=== PATIENT | male | born 1975 | race Caucasian/White ===

== ENCOUNTER 2024-05-22 18:07 | Observation (INO) | payer OTHER, SELFPAY ==
[2024-05-22 18:31] VITALS: BP 116/58; PULSE 78; TEMP 36.9; O2SAT 99; BMI 25.1
--- NOTE | 2024-05-22 18:38 | CT_ITS ---
[address] [address] Patient Name: ALEXANDRU THOMAS MRN: [id number] date: 1975 Sex: M Assigned Patient Location: ER Current Patient Location: ER Accession/Order Number: [id number] Exam Date: 05/22/2024 19:17 Report Date: 05/22/2024 21:01 At the request of: NASIM SAMUELS Procedure: CT lumbar spine wo con EXAM: CT lumbar spine wo con, CT thoracic spine wo con HISTORY: Fall off a ladder COMPARISON: None. TECHNIQUE: Axial CT scans of the lumbar spine and thoracic spine were obtained without contrast. MPR images were obtained. Dose reduction techniques were achieved by using: automated exposure control and/or adjustment of mA and /or kV according to patient size and/or use of iterative reconstruction technique. FINDINGS: LUMBAR SPINE: An acute moderate compression fracture of L1 superior endplate with resultant about 50% decrease in vertebral height anteriorly. Minimal retropulsion of the superior aspect of L1 middle column. Mild prevertebral edema is present. Mild posterior disc bulge at L4-5. No central spinal stenosis or neural foraminal stenosis. SI joints are intact. The visualized retroperitoneum shows no hemorrhage or adenopathy. Subcutaneous soft tissue contusion at the visualized medial aspect of the left gluteus roxanna muscle. THORACIC SPINE: No acute fracture or posttraumatic malalignment. Mild upper thoracic levoscoliosis without segmental anomaly, measuring about 20 degrees. No central spinal stenosis or abnormal paraspinal soft tissue. The prevertebral space shows no edema. The visualized lungs show no acute process. CT/CT lumbar spine wo con IMPRESSION: The thoracic spine shows no acute fracture or posttraumatic malalignment. An acute moderate compression fracture of L1 superior endplate with resultant about 50% decrease in vertebral height anteriorly. Minimal retropulsion of the superior aspect of L1 middle column. Mild prevertebral edema is present. Mild upper thoracic levoscoliosis without segmental anomaly, measuring about 20 degrees. Electronically authenticated by: COURTNEY SPANGLER Date: 05/22/2024 21:01
--- NOTE | 2024-05-22 18:38 | CT_ITS ---
The [address] [address] Patient Name: ALEXANDRU THOMAS MRN: [id number] date: 1975 Sex: M Assigned Patient Location: ER Current Patient Location: Accession/Order Number: [id number] Exam Date: 05/22/2024 19:17 Report Date: 05/22/2024 20:47 At the request of: NASIM SAMUELS Procedure: CT head/brain wo con EXAM: CT head/brain wo con, CT cervical spine wo con HISTORY: Fall off ladder COMPARISON: None. TECHNIQUE: Axial CT scans through the head and cervical spine were obtained without IV contrast administration. Dose reduction techniques were achieved by using: automated exposure control and/or adjustment of mA and /or kV according to patient size and/or use of iterative reconstruction technique. FINDINGS: CT BRAIN There is no evidence of acute intracranial hemorrhage or abnormal extra-axial fluid collection. No mass effect or midline shift is seen. There is no evidence of large acute territorial infarction. There is no hydrocephalus. No definite acute fracture is identified. Soft tissues are unremarkable. The visualized orbits show no abnormality. There is complete opacification of partially visualized left maxillary sinus. Mastoid air cells are clear. CT CERVICAL SPINE No acute fracture or posttraumatic malalignment is seen. The dens and lateral masses of C1 are symmetric. There is reversal of the normal cervical lordotic curvature, centered at C6-7 and mild dextroscoliosis, may be related to positioning or muscle spasm. There are multilevel mild to moderate degenerative changes of cervical spine. Findings are most pronounced at C6-7 level. There is mild disc space narrowing at C4-5, C6-7 levels and marginal osteophytes. There are multilevel mild disc-osteophyte complexes. No significant spinal canal narrowing. There are multilevel neural foraminal narrowing, moderate at right C4-5, left C6-7, and mild at right C5-6, secondary to uncovertebral joint and facet hypertrophy. The prevertebral soft tissue space appears normal. There are mild biapical scarring. CT/CT head/brain wo con IMPRESSION: No CT evidence of acute intracranial abnormality. No visualized acute cervical spine abnormality. Chronic findings, as described. Electronically authenticated by: SIMON PRECIADOU Date: 05/22/2024 20:47
--- NOTE | 2024-05-22 18:38 | CT_ITS ---
The [address] [address] Patient Name: ALEXANDRU THOMAS MRN: [id number] date: 1975 Sex: M Assigned Patient Location: ER Current Patient Location: Accession/Order Number: [id number] Exam Date: 05/22/2024 19:17 Report Date: 05/22/2024 20:47 At the request of: NASIM SAMUELS Procedure: CT cervical spine wo con EXAM: CT head/brain wo con, CT cervical spine wo con HISTORY: Fall off ladder COMPARISON: None. TECHNIQUE: Axial CT scans through the head and cervical spine were obtained without IV contrast administration. Dose reduction techniques were achieved by using: automated exposure control and/or adjustment of mA and /or kV according to patient size and/or use of iterative reconstruction technique. FINDINGS: CT BRAIN There is no evidence of acute intracranial hemorrhage or abnormal extra-axial fluid collection. No mass effect or midline shift is seen. There is no evidence of large acute territorial infarction. There is no hydrocephalus. No definite acute fracture is identified. Soft tissues are unremarkable. The visualized orbits show no abnormality. There is complete opacification of partially visualized left maxillary sinus. Mastoid air cells are clear. CT CERVICAL SPINE No acute fracture or posttraumatic malalignment is seen. The dens and lateral masses of C1 are symmetric. There is reversal of the normal cervical lordotic curvature, centered at C6-7 and mild dextroscoliosis, may be related to positioning or muscle spasm. There are multilevel mild to moderate degenerative changes of cervical spine. Findings are most pronounced at C6-7 level. There is mild disc space narrowing at C4-5, C6-7 levels and marginal osteophytes. There are multilevel mild disc-osteophyte complexes. No significant spinal canal narrowing. There are multilevel neural foraminal narrowing, moderate at right C4-5, left C6-7, and mild at right C5-6, secondary to uncovertebral joint and facet hypertrophy. The prevertebral soft tissue space appears normal. There are mild biapical scarring. CT/CT cervical spine wo con IMPRESSION: No CT evidence of acute intracranial abnormality. No visualized acute cervical spine abnormality. Chronic findings, as described. Electronically authenticated by: SIMON TAMAYO Date: 05/22/2024 20:47
--- NOTE | 2024-05-22 18:38 | CT_ITS ---
[address] [address] Patient Name: ALEXANDRU THOMAS MRN: [id number] date: 1975 Sex: M Assigned Patient Location: ER Current Patient Location: ER Accession/Order Number: [id number] Exam Date: 05/22/2024 19:17 Report Date: 05/22/2024 21:01 At the request of: NASIM SAMUELS Procedure: CT thoracic spine wo con EXAM: CT lumbar spine wo con, CT thoracic spine wo con HISTORY: Fall off a ladder COMPARISON: None. TECHNIQUE: Axial CT scans of the lumbar spine and thoracic spine were obtained without contrast. MPR images were obtained. Dose reduction techniques were achieved by using: automated exposure control and/or adjustment of mA and /or kV according to patient size and/or use of iterative reconstruction technique. FINDINGS: LUMBAR SPINE: An acute moderate compression fracture of L1 superior endplate with resultant about 50% decrease in vertebral height anteriorly. Minimal retropulsion of the superior aspect of L1 middle column. Mild prevertebral edema is present. Mild posterior disc bulge at L4-5. No central spinal stenosis or neural foraminal stenosis. SI joints are intact. The visualized retroperitoneum shows no hemorrhage or adenopathy. Subcutaneous soft tissue contusion at the visualized medial aspect of the left gluteus roxanna muscle. THORACIC SPINE: No acute fracture or posttraumatic malalignment. Mild upper thoracic levoscoliosis without segmental anomaly, measuring about 20 degrees. No central spinal stenosis or abnormal paraspinal soft tissue. The prevertebral space shows no edema. The visualized lungs show no acute process. CT/CT thoracic spine wo con IMPRESSION: The thoracic spine shows no acute fracture or posttraumatic malalignment. An acute moderate compression fracture of L1 superior endplate with resultant about 50% decrease in vertebral height anteriorly. Minimal retropulsion of the superior aspect of L1 middle column. Mild prevertebral edema is present. Mild upper thoracic levoscoliosis without segmental anomaly, measuring about 20 degrees. Electronically authenticated by: COURTNEY SPANGLER Date: 05/22/2024 21:01
--- NOTE | 2024-05-22 18:40 | ED_ITS ---
HPI HPI - Fall General Chief Complaint: Fall Stated Complaint: Fall Time Seen by Provider: 05/22/24 18:36 Source: patient Mode of arrival: Wheelchair Limitations: physical limitation History of Present Illness HPI Narrative: 48 year old male presents to the ED for low back pain s/p fall off of a ladder. He fell off the top step when trying to go from the ladder to the roof of his garage. States he landed on his buttocks and back. States he does not believe he hit his head or lost consciousness, but is unsure. Denies pain to his head, neck, chest, abdomen, hips, knees, BUE. Denies change in bowel and/or bladder control. Denies saddle anesthesia. Denies N/T to his extremities. Denies SOB, N/V. He was ambulatory after the fall. Reports spasms to his lower back. He is accompanied by family. Related Data Home Medications ?Medication ?Instructions ?Recorded ?Confirmed alosetron 1 mg tablet mg 05/22/24 Allergies Allergy/AdvReac Type Severity Reaction Status Date / Time bacitracin (From Neosporin Allergy Rash Verified 05/22/24 18:30 ([id number])) neomycin (From Neosporin Allergy Rash Verified 05/22/24 18:30 ([id number])) polymyxin B (From Neosporin Allergy Rash Verified 05/22/24 18:30 ([id number])) Opioid HPI Opioid Management Most Recent Pain and Opioid Data: Last Pain Scale 8 05/22/24 18:57 05/22/24 Last MAR Pain Assessment 05/22/24 18:57 Review of Systems ROS Constitutional Denies: fever or chills Ears, nose, mouth, and throat Denies: throat pain, neck pain, ear pain, ear discharge or nose bleeds Cardiovascular Denies: chest pain Respiratory Denies: shortness of breath Gastrointestinal Denies: abdominal pain, nausea or vomiting Genitourinary Denies: painful urination, decreased urine ouput, difficulty starting urination or urinary hesitancy Musculoskeletal Reports: back pain; Denies: neck pain, extremity pain or extremity swelling Integumentary/Breast Denies: rash, redness or sores Neurological Denies: headache, numbness in extremities, weakness in extremities, lack of coordination, dizziness or confusion PFSH PFSH Social History Little interest or pleasure in doing things: not at all Feeling down, depressed, or hopeless: not at all Exam Constitutional Vital Signs, click to edit/add: Last Vital Signs Temp 98.4 F 05/22/24 18:31 Pulse 78 05/22/24 18:31 Resp 20 05/22/24 18:31 BP 116/58 05/22/24 18:31 Pulse Ox 99 05/22/24 18:31 O2 Del Method Room Air 05/22/24 18:31 Common normals: no apparent distress and oriented x3 General appearance: cooperative HENMT Common normals: moist oral mucous membranes Head and scalp: contusion (occipital scalp); no Razo's sign and no raccoon eyes Face and sinus: normal facial exam and face symmetric Nose: external nose normal; no epistaxis External ear: external ears normal Mouth: oral and palatal mucosa normal, lip normal and tongue normal (Abrasion to left tip of tongue.) Throat: posterior oropharynx normal and uvula midline Eye Common normals: PERRL, EOMs intact bilaterally, conjunctivae normal and no scleral icterus Neck & C-Spine General: normal visual inspection Cervical spine: no cervical spine tenderness, no paracervical muscle tenderness and no paracervical muscle spasm Chest Common normals: inspection of chest normal and palpation of chest normal Chest: symmetrical chest wall rise Respiratory Common normals: normal respiratory effort and clear to auscultation bilaterally Effort & inspection: able to speak in complete sentences and symmetric chest movement Cardio Common normals: regular rate and regular rhythm Peripheral pulses: radial pulses present, posterior tibial pulses present and dorsalis pedis pulses present GI Common normals: Normal to inspection, nondistended, normoactive bowel sounds present, soft to palpation and non-tender Back & Pelvis Thoracic spine/upper back: normal to inspection; no thoracic spinal tenderness and no paraspinal muscle tenderness Lumbar spine/lower back: normal to inspection, lumbar spinal tenderness, paraspinal muscle tenderness and paraspinal muscle spasm Pelvis: buttocks normal Extremity Common normals: full ROM and normal capillary refill Other: Denies tenderness to extremities. Distal sensation intact. No obvious deformity. Neuro Common normals: oriented x3, CN's II-XII intact bilaterally, moves all extremities and no focal motor deficits Sensorium/orientation: awake and alert Speech: speech normal Course Vital Signs Vital signs: Vital Signs Temperature 98.4 F 05/22/24 18:31 Pulse Rate 78 05/22/24 18:31 Respiratory Rate 20 05/22/24 18:31 Blood Pressure 116/58 05/22/24 18:31 Pulse Oximetry 99 05/22/24 18:31 Oxygen Delivery Method Room Air 05/22/24 18:31 Temperature 98.4 F 05/22/24 18:31 Pulse Rate 78 05/22/24 18:31 Respiratory Rate 20 05/22/24 18:31 Blood Pressure 116/58 05/22/24 18:31 Pulse Oximetry 99 05/22/24 18:31 Oxygen Delivery Method Room Air 05/22/24 18:31 MDM - Fall MDM Narrative Medical decision making narrative: CT scans of the head, cervical spine, thoracic spine, and lumbar spine were completed. CT scan showed: An acute moderate compression fracture of L1 superior endplate with resultant about 50% decrease in vertebral height anteriorly. Minimal retropulsion of the superior aspect of L1 middle column. Mild prevertebral edema is present. Mild upper thoracic levoscoliosis without segmental anomaly, measuring about 20 degrees. Findings were discussed with the patient. He was given a copy of his CT report. He was given Dilaudid and Norflex for his discomfort. I spoke with Jakob, title unknown, who was elevator constructor for Dr. Louie, orthopedic artillery specialist. She recommended an MRI to ensure it was a stable fracture. The patient will be admitted for an MRI in the morning. He was in agreement with this. I spoke with Lilliam ALVAREZ who accepted the patient for admission on behalf of Dr. Martinez. Medical Records Attestation: I reviewed the patient's medical records. Imaging Data CT scan - head: Attestation: I have reviewed the pertinent imaging results. Radiologist's impression: ITS Impressions Cervical Spine CT 05/22/24 18:38 IMPRESSION: No CT evidence of acute intracranial abnormality. No visualized acute cervical spine abnormality. Chronic findings, as described. Electronically authenticated by: [facility] Date: 05/22/2024 20:[address] 05/22/24 18:38 IMPRESSION: No CT evidence of acute intracranial abnormality. No visualized acute cervical spine abnormality. Chronic findings, as described. Electronically authenticated by: [facility] Date: 05/22/2024 20:[address] 05/22/24 18:38 IMPRESSION: The thoracic spine shows no acute fracture or posttraumatic malalignment. An acute moderate compression fracture of L1 superior endplate with resultant about 50% decrease in vertebral height anteriorly. Minimal retropulsion of the superior aspect of L1 middle column. Mild prevertebral edema is present. Mild upper thoracic levoscoliosis without segmental anomaly, measuring about 20 degrees. Electronically authenticated by: COURTNEY SPANGLER Date: 05/22/2024 21:[address] 05/22/24 18:38 IMPRESSION: The thoracic spine shows no acute fracture or posttraumatic malalignment. An acute moderate compression fracture of L1 superior endplate with resultant about 50% decrease in vertebral height anteriorly. Minimal retropulsion of the superior aspect of L1 middle column. Mild prevertebral edema is present. Mild upper thoracic levoscoliosis without segmental anomaly, measuring about 20 degrees. Electronically authenticated by: COURTNEY SPANGLER Date: 05/22/2024 21:01 Discharge Plan Discharge Chief Complaint: Fall Clinical Impression: Fall from ladder, Compression fracture of L1 vertebra Patient Disposition: Admitted as Observation Time of Disposition Decision: 22:03 Condition: Good
--- NOTE | 2024-05-22 18:43 | PC.NURSE ---
c collar applied per order, pt tolerated well
[2024-05-22] MEDS: ONDANSETRON 4 MG RAPDIS TABLET SL (18:57)
[2024-05-22] MEDS: HYDROMORPHONE HCL 1 MG/ML CARTRIDGE IM ×2 (18:57→20:37)
[2024-05-22] MEDS: ORPHENADRINE 60 MG/ 2 ML VIAL IM (20:36)
[2024-05-22 22:25] VITALS: BP 104/62; PULSE 87; O2SAT 96
[2024-05-22 22:26] LABS: Basophils Percent Auto 0.1 % (0.2-2.0); Eosinophils Percent Auto 0.1 % (0.9-7.0); Hematocrit 43.5 % (42.0-54.0); Hemoglobin 14.4 g/dL (14.0-18.0); Immature Granulocytes Abs Auto 0.07 10^3/uL (0.00-0.03); Immature Granulocytes Pct Auto 0.4 % (0.0-0.5); Lymphocytes Absolute Auto 0.8 10^3/uL (1.2-3.8); Lymphocytes Percent Auto 4.6 % (20.5-60.0); Mean Corpuscular HGB Conc 33.1 g/dL (29.9-35.2); Mean Corpuscular Hemoglobin 27.8 pg (25.9-34.0); Mean Platelet Volume 9.6 fL (9.5-13.5); Monocytes Percent Auto 5.8 % (1.7-12.0); Neutrophils Absolute Auto 14.7 10^3/uL (1.4-6.5); Platelet Count 210 10^3/uL (150-450); Red Blood Count 5.18 10^6/uL (4.70-6.10); Red Cell Distribution Width 12.9 % (11.0-15.0); White Blood Count 16.5 10^3/uL (4.0-11.0)
[2024-05-22 22:38] LABS: Anion Gap 12.7; BUN Creatinine Ratio 14.9; Carbon Dioxide 29.2 mmol/L (21.0-32.0); Chloride 100 mmol/L (98-107); Estimated GFR (African America >60 (>=60 mL/min/1.73m^2); Estimated GFR (Non-African Ame 54 (>=60 mL/min/1.73m^2); Glucose 118 mg/dL (74-106); Potassium 4.9 mmol/L (3.5-5.1); Sodium 137 mmol/L (136-145)
[2024-05-22 22:40] VITALS: BP 127/77; PULSE 94; TEMP 36.7; O2SAT 95; BMI 26.6
[2024-05-22] MEDS: OXYCODONE HCL/ACETAMINOPHEN 5MG/325MG 2 TAB PO (23:08)
[2024-05-22] MEDS: CYCLOBENZAPRINE HCL 10 MG TABLET PO (23:08)
[2024-05-23 04:00] VITALS: BP 110/64; PULSE 83; TEMP 36.7; O2SAT 96
[2024-05-23 05:54] LABS: Hematocrit 41.1 % (42.0-54.0); Hemoglobin 13.6 g/dL (14.0-18.0); Mean Corpuscular HGB Conc 33.1 g/dL (29.9-35.2); Mean Corpuscular Hemoglobin 27.5 pg (25.9-34.0); Mean Corpuscular Volume 83.2 fL (80.0-94.0); Platelet Count 208 10^3/uL (150-450); Red Blood Count 4.94 10^6/uL (4.70-6.10); Red Cell Distribution Width 12.8 % (11.0-15.0); White Blood Count 10.2 10^3/uL (4.0-11.0)
[2024-05-23 06:07] LABS: Anion Gap 14.8; BUN Creatinine Ratio 15.9; Calcium 8.7 mg/dL (8.5-10.1); Carbon Dioxide 25.7 mmol/L (21.0-32.0); Chloride 100 mmol/L (98-107); Estimated GFR (African America >60 (>=60 mL/min/1.73m^2); Estimated GFR (Non-African Ame >60 (>=60 mL/min/1.73m^2); Glucose 120 mg/dL (74-106); Potassium 4.5 mmol/L (3.5-5.1); Sodium 136 mmol/L (136-145)
--- NOTE | 2024-05-23 07:00 | MR_ITS ---
The [address] [address] Patient Name: ALEXANDRU THOMAS MRN: [id number] date: 1975 Sex: M Assigned Patient Location: MS Current Patient Location: MS Accession/Order Number: [id number] Exam Date: 05/23/2024 10:50 Report Date: 05/23/2024 12:40 At the request of: AMY LOZANO Procedure: MR lumbar spine wo con EXAM: MR lumbar spine wo con REASON FOR EXAM: Fall off ladder; L1 fx. TECHNIQUE: Multiplanar, multisequence imaging of the lumbar spine was performed without contrast COMPARISON: Radiographs 05/22/2024. FINDINGS: There is an acute or subacute compression fracture at the L1 vertebral body with 20-30% vertebral body height loss. Minimal retropulsion is identified. No spinal canal stenosis. No fracture extension into the posterior elements. Remaining vertebral body heights are maintained. 5 nonrib-bearing lumbar vertebrae. Normal lumbar lordosis without listhesis. No aggressive osseous abnormality. The bony pelvis appears congruent with mild joint space narrowing of the sacroiliac joints. Limited evaluation of the abdominopelvic viscera is without acute or suspicious abnormality. T12-L1: Minimal broad-based disc bulge without spinal canal or neural foraminal stenosis. L1-L2: No focal disc herniation identified. No spinal canal or neural foraminal stenosis. L2-L3: Minimal broad-based disc bulge without spinal canal stenosis. Minimal bilateral neural foraminal stenosis secondary to disc osteophyte complex and facet arthropathy. L3-L4: Mild broad-based disc bulge without spinal canal stenosis. There is more focal broad-based left foraminal lateral protrusion with annular fissure. Mild right and moderate left neural foraminal stenosis secondary to disc osteophyte complex and facet arthropathy. L4-L5: Broad-based disc bulge with mild spinal canal stenosis. Moderate bilateral neural foraminal stenosis secondary to disc osteophyte complex and facet arthropathy. There is more focal broad-based left foraminal lateral protrusion is well. L5-S1: Minimal broad-based disc bulge without spinal canal or neural foraminal stenosis. MR/MR lumbar spine wo con IMPRESSION: 1. Acute or subacute L1 superior endplate compression deformity with 20-30% vertebral body height loss. Minimal retropulsion without spinal canal stenosis. No fracture extension into the posterior elements is evident. 2. Mild to moderate multilevel degenerative disc disease and facet arthropathy, most significant at the L3-L4 and L4-L5 levels. No evidence of focal large central disc herniation or severe spinal canal stenosis. Electronically authenticated by: DEYSI LANGSTON Date: 05/23/2024 12:40
[2024-05-23 07:59] VITALS: BP 117/66; PULSE 79; TEMP 36.6; O2SAT 92
[2024-05-23] MEDS: ALOSETRON 1 MG 1 EACH PO ×2 (08:00→20:27)
--- NOTE | 2024-05-23 08:51 | P.HP_ITS ---
HPI H&P: HPI History of Present Illness Chief complaint: Fall lumbar spine MRI in the morning L1 compressio Narrative: Patient is a 48 y.o white male with past medical history of IBS-D, was trying to get on his garage roof yesterday when he missed the last step and fell off the ladder (about 12feet) landing on his back and tail bone. He denies LOC but immediately had pain in his low back, muscle spasms, making it difficult to walk. CT scans of the head (no acute process), Neck (chronic DJD worse C6-C7), thoracic spine (no acute process) and Lumbar spine revealed a acute L1 compression fracture with 50% decrease in vertebral height anteriorly. WBC's 10.2, Hb 13.6. Patient was admitted for pain control and MRI study. Orthopedic spine was also consulted. This morning patient reports pain is controlled. No prior surgeries before. I discussed all findings of CT scans and plan for ortho consult. He has no bowel or bladder incontinence, no leg symptoms. Opioid HPI Opioid Management Most Recent Pain and Opioid Data: Last Pain Scale 2 05/23/24 10:34 05/23/24 Last Pain Assessment 05/23/24 12:21 Last MAR Pain Assessment 05/23/24 09:51 Last ORT Total Score 0 05/22/24 22:40 05/22/24 Last ORT Risk Category Low Risk 05/22/24 22:40 05/22/24 Review of Systems ROS Narrative ROS: a complete review of systems were reviewed with patient and are positive as below or listed in History of Chief Complaint. General: no fever, chills, night sweats Head: no headache, trauma, visual changes, nausea or vomiting Skin: no reported rashes, itching or sores Eyes: no blurriness of vision Ears: no reported hearing loss, vertigo, earache, or tinnitus Throat: no sore throat, hoarseness, swelling of neck, or tongue pain Heart: no chest pain Lungs: no shortness of breath or cough GI: no diarrhea or vomiting/nausea Urinary: no urinary urgency, frequency or pain Neuro: no numbness or tingling HEM: no bleeding issues or bruising ENDO: no thyroid problems Psych: no anxiety or depression [facility] Medical History (Updated 05/23/24 @ 08:55 by Estrella Martinez DO) History of IBS ?Z87.19 - Personal history of other diseases of the digestive system (ICD-10) Surgical History Hx of colonoscopy ?Z98.890 - Other specified postprocedural states (ICD-10) Family History Other Family history of CHF (congestive heart failure) Family history of cancer Family history of diabetes mellitus Family history of hypertension Family history of stroke Social History Within the past year, how often did you have a drink containing alcohol: monthly or less Within the past year, how many standard drinks containing alcohol did you have on a typical day: 1 or 2 Total score: 0 Score interpretation: A score less than 4 is consistent with normal alcohol consumption. Smoking status: Former smoker Non-prescribed substance use: denies use Previous occupational history: [employer] Highest level of school completed/degree received: Associate degree: [employer], technical, vocational program Are you now , , , , never or living with a partner: In a typical week, how many times do you talk on the telephone with family, friends, or neighbors: 3 or more times per week How often do you get together with friends or relatives: 3 or more times per week Little interest or pleasure in doing things: not at all Feeling down, depressed, or hopeless: not at all Feel stressed/tense/nervous/anxious/difficulty sleeping: not at all Do you think of yourself as: straight/heterosexual Gender Identity: male Meds Home Medications and Allergies Home Medications ?Medication ?Instructions ?Recorded ?Confirmed ?Type alosetron 1 mg tablet 1 mg PO Q12H 05/22/24 05/22/24 History Allergies Allergy/AdvReac Type Severity Reaction Status Date / Time bacitracin (From Neosporin Allergy Rash Verified 05/22/24 18:30 ([id number])) neomycin (From Neosporin Allergy Rash Verified 05/22/24 18:30 ([id number])) polymyxin B (From Neosporin Allergy Rash Verified 05/22/24 18:30 ([id number])) Exam Narrative Exam Narrative: General: Patient is alert, and oriented to person, place and time with normal affect, proper hygiene Skin: small abrasion left lateral malleolus Head: atraumatic, acephalic Eyes: PERRLA, no nystagmus present, conjunctiva clear, no scleral icterus Ears: normal Tympanic Membrane, normal gross auditory acuity Nose: symmetric, no discharge, no maxillary or frontal sinus tenderness Mouth/Throat: no erythema, exudate, or tonsillar enlargement, normal dentition Neck: no masses palpated, normal thyroid, no JVD or audible carotid bruits Heart: Normal rate and rhythm, no murmurs/rubs/gallops Lungs: no audible wheezes, crackles and normal breath sounds all lung valdivia Abdomen: Normal audible bowel sounds, no distension, No palpable masses, no organomegaly, no rebound/guarding/ or rigidity Musculoskeletal: no swelling bilateral lower extremities Neuro: CN II-X grossly intact, normal sensation upper and lower extremities Constitutional Vital Signs, click to edit/add: Last Vital Signs Temp 97.9 F 05/23/24 07:59 Pulse 79 05/23/24 07:59 Resp 16 05/23/24 07:59 BP 117/66 05/23/24 07:59 Pulse Ox 92 L 05/23/24 07:59 O2 Del Method Room Air 05/23/24 07:59 Results Labs Labs: Short CBC 05/22/24 05/23/24 Range/Units 22:20 05:19 WBC 16.5 H 10.2 (4.0-11.0) 10^3/uL Hgb 14.4 13.6 L (14.0-18.0) g/dL Hct 43.5 41.1 L (42.0-54.0) % Plt Count 210 208 (150-450) 10^3/uL BMP 05/22/24 05/23/24 22:20 05:19 Sodium 137 136 Potassium 4.9 4.5 Chloride 100 100 Carbon Dioxide 29.2 25.7 BUN 21.0 H 20.0 H Creatinine 1.41 H 1.26 Glucose 118 H 120 H Calcium 9.0 8.7 Assessment and Plan Assessment and Plan (1) Compression fracture of L1 vertebra: Assessment and Plan: Pain control, MRI today and ortho consult for further plan of care: Brace recommendation, activity restrictions and follow up. Qualifiers: Encounter type: initial encounter Qualified Code(s): S32.010A - Wedge compression fracture of first lumbar vertebra, initial encounter for closed fracture (2) History of IBS: Assessment and Plan: continue alosetron Plan Patient is a full code SCD's for DVT prophylaxis Patient is in observation and is not expected to stay more than 2 days for care.
[2024-05-23] MEDS: OXYCODONE HCL/ACETAMINOPHEN 5MG/325MG 1 TAB PO ×3 (08:52→21:05)
--- NOTE | 2024-05-23 10:00 | CM.NOTE ---
Rounds made with Dr. Martinez, pt awaiting MRI for today. Orthopedic will consult on pt for further recommendations. Possible discharge this afternoon if fx is stable and pain is controlled.
[2024-05-23 11:43] VITALS: BP 115/70; PULSE 74; TEMP 36.7; O2SAT 94
--- NOTE | 2024-05-23 15:00 | CM.NOTE ---
Paged Dr. Jaeger about MRI results and weight bearing status for pt. Dr. Martinez would like Case Management to give him her cell number for contact. Office will reach out to [facility] for him to call back. JOSE G rubio.
[2024-05-23 15:34] VITALS: BP 116/67; PULSE 80; TEMP 36.7; O2SAT 95
--- NOTE | 2024-05-23 15:35 | SWNOTE1 ---
SALVADOR called [facility] in regards to a TLSO brace. If patient were to need this brace, he would have to go there and get fitted. They would need an order and physician documentation stating the need for the brace. SALVADOR notified Dr. Martinez.
[2024-05-23 20:00] VITALS: BP 115/70; PULSE 78; TEMP 36.7; O2SAT 95
[2024-05-23] MEDS: CYCLOBENZAPRINE HCL 10 MG TABLET PO (21:05)
[2024-05-23 23:45] VITALS: BP 130/70; PULSE 73; TEMP 36.7; O2SAT 95
[2024-05-24] MEDS: OXYCODONE HCL/ACETAMINOPHEN 5MG/325MG 1 TAB PO ×3 (03:22→14:33)
[2024-05-24 03:27] VITALS: BP 108/67; PULSE 70; TEMP 36.5; O2SAT 95
--- NOTE | 2024-05-24 06:23 | PM.ORCN ---
History of Present Illness HPI Consult date: 05/24/24 Chief complaint: Fall lumbar spine MRI in the morning L1 compressio Narrative: Patient is a 48 year old male that presented to the ED on 05/22 after falling off the top rung of a ladder trying to get on his garage. He landed on his buttocks and had back and left leg pain. On CT imaging an L1 compression fracture was revealed and patient was admitted for pain control and an MRI. Ortho is consulted for evaluation of the fracture. Patient's pain has been controlled during admission and he denies and bowel or bladder incontinence or retention, saddle anesthesia, lower extremity paresthesias or weakness. He states that he is having diffuse lower back pain and some numbness where he landed on his buttocks. His left leg is sore but he states he somewhat landed on this leg as well. [facility] Medical History (Updated 05/23/24 @ 08:55 by Estrella Martinez DO) History of IBS ?Z87.19 - Personal history of other diseases of the digestive system (ICD-10) Surgical History Hx of colonoscopy ?Z98.890 - Other specified postprocedural states (ICD-10) Family History Other Family history of CHF (congestive heart failure) Family history of cancer Family history of diabetes mellitus Family history of hypertension Family history of stroke Social History Within the past year, how often did you have a drink containing alcohol: monthly or less Within the past year, how many standard drinks containing alcohol did you have on a typical day: 1 or 2 Total score: 0 Score interpretation: A score less than 4 is consistent with normal alcohol consumption. Smoking status: Former smoker Non-prescribed substance use: denies use Previous occupational history: [employer] Highest level of school completed/degree received: Associate degree: occupational, technical, vocational program Are you now , , , , never or living with a partner: In a typical week, how many times do you talk on the telephone with family, friends, or neighbors: 3 or more times per week How often do you get together with friends or relatives: 3 or more times per week Little interest or pleasure in doing things: not at all Feeling down, depressed, or hopeless: not at all Feel stressed/tense/nervous/anxious/difficulty sleeping: not at all Do you think of yourself as: straight/heterosexual Gender Identity: male Meds Home Medications and Allergies Home Medications ?Medication ?Instructions ?Recorded ?Confirmed ?Type alosetron 1 mg tablet 1 mg PO Q12H 05/22/24 05/22/24 History Allergies Allergy/AdvReac Type Severity Reaction Status Date / Time bacitracin (From Neosporin Allergy Rash Verified 05/22/24 18:30 ([id number])) neomycin (From Neosporin Allergy Rash Verified 05/22/24 18:30 ([id number])) polymyxin B (From Neosporin Allergy Rash Verified 05/22/24 18:30 ([id number])) Exam Narrative Exam Narrative: On exam patient is sitting up in the bed awake and alert, in no distress. On inspection of the lumbar area skin is intact, there is no ecchymosis, erythema, or warmth to touch. There is tenderness with palpation of the midline lumbar spine and lumbar paraspinals. 5/5 bilateral lower extremity strength. Sensation intact bilateral lower extremities with light touch. Constitutional Vital Signs, click to edit/add: Last Vital Signs Temp 97.7 F 05/24/24 03:27 Pulse 70 05/24/24 03:27 Resp 20 05/24/24 03:27 BP 108/67 05/24/24 03:27 Pulse Ox 95 05/24/24 03:27 O2 Del Method Room Air 05/24/24 03:27 Results Labs Labs: H & H 05/22/24 05/23/24 Range/Units 22:20 05:19 Hgb 14.4 13.6 L (14.0-18.0) g/dL Hct 43.5 41.1 L (42.0-54.0) % All other labs normal. Assessment and Plan Assessment and Plan (1) Compression fracture of L1 vertebra: Assessment and Plan: L1 compression fracture-traumatic - MRI LSpine reviewed by myself-Acute or subacute L1 superior endplate compression deformity with 20-30% vertebral body height loss. Minimal retropulsion without spinal canal stenosis. No fracture extension into the posterior elements is evident. - Recommend non operative treatment at this time, we did discuss kyphoplasty briefly if patient's pain is uncontrolled in brace. - Neuro intact, no red flag symptoms - PT eval-can eval without brace - LSO brace for 6 weeks minimum-patient will need to obtain, Orthotic company name placed in discharge details - [facility] - Follow up with Dr Louie this Wednesday or in a few weeks, discussed with patient. Will need appointment. Qualifiers: Encounter type: initial encounter Qualified Code(s): S32.010A - Wedge compression fracture of first lumbar vertebra, initial encounter for closed fracture
[2024-05-24 08:07] VITALS: BP 127/77; PULSE 77; TEMP 36.4; O2SAT 98
--- NOTE | 2024-05-24 08:23 | P.DS_ITS ---
DS: Providers Provider Date of admission: 05/22/24 22:34 Primary care physician: Non-Staff Physician, Attending physician on admission: Estrella Martinez Consults: 05/23/24 07:00 Consult to Orthopedic Surgery Routine Consulting Provider: Nikhil Santana Reason For Exam: Reason for consultation: L1 compression fx s/p fall off ladder - ED MD spoke Dr. [facility] Has provider been notified: Yes 05/24/24 06:28 Physical Therapy Eval and Treat Routine Reason for consultation: Eval for home going needs Has provider been notified: No Discharging clinician: Estrella Martinez DS: Diagnosis Discharge Diagnosis (1) Compression fracture of L1 vertebra: Qualifiers: Encounter type: initial encounter Qualified Code(s): S32.010A - Wedge compression fracture of first lumbar vertebra, initial encounter for closed fracture DS: Summary Hospital Course Hospital Course: Patient is a 48 y.o white male with past medical history of IBS-D, was trying to get on his garage roof when he missed the last step and fell off the ladder (about 12feet) landing on his back and tail bone. He denies LOC but immediately had pain in his low back, muscle spasms, making it difficult to walk. CT scans of the head (no acute process), Neck (chronic DJD worse C6-C7), thoracic spine (no acute process) and Lumbar spine revealed a acute L1 compression fracture with 50% decrease in vertebral height anteriorly. WBC's 10.2, Hb 13.6. Patient was admitted for pain control and MRI study. Orthopedic spine was also consulted. There was a communication issue on the timing of Ortho consult, as Dr. Nails apparently does not take call or see consults here at [facility] and this did not happen yesterday but Orthopedic PA did see and evaluate patient this morning on his behalf. She recommended LSO brace to be worn for 6 weeks. He has to physically go to the medical supply store to be fitted for the brace which is in [place], [place] and we are not able to acquire brace in house. He needs the LSO brace for pain control and to help perform his ADL's. He has worked with Physical therapy and did well walking with wheeled walker in the halls and will benefit from having this at home. His pain is controlled on Percocet and Flexeril. I have sent Rx's to [facility]. He has close outpatient follow up with Dr. Nails this Wednesday05/26/24. He has no bowel or bladder incontinence, no leg symptoms. He will be discharged home today in stable condition. Vitals and labs have been stable. He may return to the ER with any worsening/concerning symptoms. I have answered patient's and questions at the time of discharge, He will address further activity restrictions with Dr. Nails on wednesday after he has received his LSO brace. We discussed limited activity outside of walking and basic ADL's until then. Status at Discharge Functional status at discharge: uses cane/walker Overall status at discharge: patient is progressing back to baseline Time Spent with Patient Time attestation: Total time spent providing and/or coordinating discharge services: Time spent: greater than 30 minutes Exam Narrative Exam Narrative: General: Patient is alert, and oriented to person, place and time with normal affect, proper hygiene Skin: small abrasion left lateral malleolus Head: atraumatic, acephalic Neck: no masses palpated, normal thyroid, no JVD or audible carotid bruits Heart: Normal rate and rhythm, no murmurs/rubs/gallops Lungs: no audible wheezes, crackles and normal breath sounds all lung valdivia Abdomen: Normal audible bowel sounds, no distension, No palpable masses, no organomegaly, no rebound/guarding/ or rigidity Musculoskeletal: no swelling bilateral lower extremities Neuro: CN II-X grossly intact, normal sensation upper and lower extremities, 4/5 strength bilateral lower ext Constitutional Vital Signs, click to edit/add: Last Vital Signs Temp 97.6 F 05/24/24 08:07 Pulse 77 05/24/24 08:07 Resp 18 05/24/24 08:07 BP 127/77 05/24/24 08:07 Pulse Ox 98 05/24/24 08:07 O2 Del Method Room Air 05/24/24 08:07 Discharge Plan Discharge Disposition: Home, Self-Care Condition: Good Discharge Medications: New cyclobenzaprine 10 mg Tablet 10 mg PO TID PRN (Reason: Muscle Pain) 30 Days Qty: 90 0RF oxycodone-acetaminophen 5-325 mg Tablet 1 tab PO Q6H PRN (Reason: pain) 3 Days Qty: 12 0RF Rx Instructions: Diag: Acute lumbar compression fracture ibuprofen 800 mg tablet 800 mg PO Q8H PRN (Reason: pain) 7 Days Qty: 21 0RF docusate sodium 100 mg capsule 100 mg PO BID 10 Days Qty: 20 0RF Continued alosetron 1 mg tablet 1 mg PO Q12H Activity: as per physical therapy and other Activity Detail: Wear LSO brace until cleared by Orthopedics Diet: advance to your usual diet Print Language: Yi Activity Restrictions/Additional Instructions: [facility] [place] has the LSO brace needed. Forms: Portal Instructions Follow Up Appointments: Dr Salgado May 26, 2024 at 10:30
[2024-05-24] MEDS: ALOSETRON 1 MG 1 EACH PO (08:43)
[2024-05-24] MEDS: CYCLOBENZAPRINE HCL 10 MG TABLET PO (08:43)
--- NOTE | 2024-05-24 09:45 | CM.NOTE ---
Rounds made with Dr. Martinez, pt will discharge to home today. Pt will need LSO brace at discharge. PT will evaluate pt prior to discharge.
--- NOTE | 2024-05-24 13:00 | CM.NOTE ---
Pt's went to clam picker prescriptions at [facility] when returned she had already purchased a wheeled walker for pt. and pt deny need for script to be sent to [facility]. SALVADOR working on brace.
--- NOTE | 2024-05-24 14:10 | SWNOTE1 ---
SALVADOR had called [facility], [facility], and [facility] and none if those places are able get pt LSO brace and recommended trying [facility]. After several conversations with [facility] and conflicting information, it was determined that pt can go to the [place] office of [facility] today and get an LSO brace. Pt and aware that they may have to pay out of pocket initially and it could be up to $1,000. SALVADOR faxed diagnostic imaging, physician notes, and therapy notes to [facility]. They voiced they are going to send on order for the physician to sign. Pt will be discharged today and go to [facility] to get brace.
--- NOTE | 2024-05-25 15:02 | CM.DCFOLLOWU ---
1st attempt 05/25/24, no answer
--- NOTE | 2024-05-29 11:50 | CM.DCFOLLOWU ---
Person spoke with:patient How are you feeling?well How is your pain? managed, on regular motrin now, stopped the other meds Did you understand your discharge instructions? yes Do you have any questions about your discharge instructions? no Were you given any prescriptions at discharge? yes Were you able to get your prescriptions filled? yes Do you understand how to take your medications as ordered? yes Do you have any questions about your follow up appointment and do you plan to keep your follow up appointment? no questions, follow up Wednesday, went well. Has back brace and wearing it currently Is there anything else that you would like to discuss? no Questions/Comments/Concerns/Other:none
== END 2024-05-24 14:35 | disposition home or self-care (01) ==
LOC: ER 22:03 → MS 22:36
PROVIDERS: Nurse Practitioner Family; Registered Nurse; Admitting Provider Family Medicine; Emergency Provider Emergency Medicine; Visit Provider Family Medicine
DX: S32.010A Wedge compression fracture of first lumbar vertebra, initial encounter for closed fracture (principal); W11.XXXA Fall on and from ladder, initial encounter; K58.0 Irritable bowel syndrome with diarrhea; Z87.891 Personal history of nicotine dependence; M47.812 Spondylosis without myelopathy or radiculopathy, cervical region; S90.512A Abrasion, left ankle, initial encounter; S00.03XA Contusion of scalp, initial encounter; M47.816 Spondylosis without myelopathy or radiculopathy, lumbar region
CPT/HCPCS: 36415; 70450; 72125; 72128; 72131; 72148; 80048; 85025; 85027; 96372; 97161; 99285; G0378; J1171; J2360; Q0162

== ENCOUNTER 2024-06-23 09:29 | Outpatient (OUT) | payer OTHER, SELFPAY ==
--- NOTE | 2024-06-23 | XR_ITS ---
The [address] [address] Patient Name: ALEXANDRU THOMAS MRN: [id number] date: 1975 Sex: M Assigned Patient Location: Current Patient Location: Accession/Order Number: [id number] Exam Date: 06/23/2024 10:29 Report Date: 06/23/2024 10:35 At the request of: MARILUZ PEÑALOZA MD Procedure: XR lumbar spine 2-3V LUMBAR SPINE - 2 views COMPARISON: 05/23/2024 MRI CLINICAL DATA: Back pain. Follow-up L1 compression fracture Weightbearing AP and lateral views were obtained. There is slight levoscoliotic curvature. There is redemonstration of wedge compression fracture at superior aspect of L1. There might be minimal progression since the comparison. There is sclerosis at that site. There is retropulsion of the posterior superior endplate. No other fractures are noted. There is minimal retrolisthesis of L2 on L3 and L3 on L4. There is potential slight disc space narrowing at the lumbosacral junction. There is minimal endplate spurring and lower lumbar facet hypertrophy. The SI joints are intact. XR/XR lumbar spine 2-3V IMPRESSION: SCOLIOSIS AND MINOR DEGENERATIVE CHANGES. L1 COMPRESSION FRACTURE, WITH POTENTIAL SLIGHT PROGRESSION. Impression dictated by: Sherlyn Ward M.D.06/23/2024 10:35 AM Dictation Location: [place] [address] Electronically authenticated by: [id number] Y Date: 06/23/2024 10:35
--- OUTSIDE RECORDS SUMMARY | 2024-06-23 09:33 | XMS_ITS | CCD ---
Author Organization [facility] Care Team Providers Care Paper Twister Name Role Phone RAFA SERVIN Admitting Unavailable RAFA SERVIN Attending Unavailable RAFA SERVIN Consulting Unavailable RAFA SERVIN Admitting Unavailable RAFA SERVIN Attending Unavailable RAFA SERVIN Consulting Unavailable Jan Fletcher Unavailable LORRAINE Servin Primary Care Provider [phone] MD Tim Arenas Attending Provider [phone] Deepa Imelicia Attending Unavailable Rafa Servin Primary Care Unavailable Asaad, Imad Admitting Unavailable Deepa Imad Attending Unavailable Rafa Servin Primary Care Unavailable Asaad, Imad Admitting Unavailable Rafa Servin MD Primary Care Provider [phone] RAFA SERVIN Attending Unavailable Allergies Allergy Classification Reported Allergen(s) Allergy Type Date of Onset Reaction(s) Facility (4 sources) Bacitracin / Neomycin / Polymyxin B Drug Allergy Unknown [facility] Other (6 sources) mesalamine Drug Allergy 4 Unknown, Unknown Reaction [facility] (3 sources) Bacitracin; Translations: [bacitracin] Drug Allergy 4 rash and swelling [facility] (3 sources) Neomycin; Translations: [neomycin] Drug Allergy 4 rash and swelling [facility] (3 sources) polymyxin B; Translations: [polymyxin B] Allergy to substance 4 rash and swelling [facility] (1 source) mesalamine Drug Allergy 4 [facility] Repository (2 sources) mesalamine Drug Allergy 4 [facility] Medications Current Medications Medication Drug Class(es) Dates Sig (Normalized) Sig (Original) loperamide hydrochloride 2 mg oral capsule (8 sources) Opioid Agonist Start: 08-23-2017 End: 11-09-2023 take 1 capsule by mouth once daily Loperamide (Imodium A-D) 2 mg capsule Active 2 MG PO Daily November 09, 2023 4:01pm take 1 tablet by mouth every six hours Imodium A-D 2 MG 1 tablet as needed Orally Four times a day Active Completed/Discontinued Medications Medication Drug Class(es) Dates Sig (Normalized) Sig (Original) alosetron 1 mg oral tablet (12 sources) Serotonin-3 Receptor Antagonist Start: 10-25-2018 End: 11-09-2023 take 1 mg by mouth twice daily Alosetron Discontinued 1 MG PO Twice daily April 03, 2019 1:00am July 19, 2023 8:46am Problems Problem Classification Problem Date Documented Da te Episodic/Chronic Other gastrointestinal disorders (8 sources) Irritable bowel syndrome with diarrhea; Translations: [Irritable bowel syndrome with diarrhea] Onset: 09-22-2022 11-09-2023 Chronic Other gastrointestinal disorders (5 sources) Irritable bowel syndrome with diarrhea; Translations: [Irritable bowel syndrome] Chronic Other gastrointestinal disorders (4 sources) Diarrhea; Translations: [Diarrhea, unspecified] Episodic Other gastrointestinal disorders (4 sources) Ulceration of intestine; Translations: [Ulcer of intestine] Episodic Other gastrointestinal disorders (3 sources) Diarrhea, unspecified; Translations: [Diarrhea] Onset: 12-22-2023 11-09-2023 Episodic Other nutritional; endocrine; and metabolic disorders (4 sources) Increased body mass index; Translations: [Body mass index (BMI) 29.0-29.9, adult] Episodic Other upper respiratory disease (2 sources) Allergic rhinitis; Translations: [Other allergic rhinitis] Onset: 05-27-2009 09-22-2022 Chronic Regional enteritis and ulcerative colitis (10 sources) Crohn's disease of small intestine; Translations: [Crohn's disease of small intestine without complications] Onset: 02-16-2024 Chronic Residual codes; unclassified (4 sources) Obstructive sleep apnea (adult) (pediatric); Translations: [OBSTRUCTIVE SLEEP APNEA] Onset: 08-09-2018 Chronic Residual codes; unclassified (2 sources) Dependence on continuous positive airway pressure ventilation; Translations: [Dependence on other enabling machines and devices] Onset: 09-22-2022 09-22-2022 Chronic Residual codes; unclassified (2 sources) Hypersomnia; Translations: [Hypersomnia, unspecified] Onset: 09-22-2022 09-22-2022 Chronic Residual codes; unclassified (2 sources) Obstructive sleep apnea syndrome; Translations: [Obstructive sleep apnea (adult) (pediatric)] Onset: 09-22-2022 09-22-2022 Chronic Results Test Name Value Interpretation Reference Range Facility [facility] 12-22-2023 L Specimen: [id number] Received: 12/23/23 Status: RICKEYPrem Bush Num: [id number] Spec Type: Surgical Subm Dr: Tim Arenas MD Tissues: A Colon Biopsy (RANDOM COLON BXS R/O MICROSC) Procedures: HE/2, Gross/Micro L4 Age/ Patient Sex Location Account Attending Physician Alexandru Thomas 48/M [id number] Tim Arenas MD SPEC NUM: [id number] RECD: 12/23/23 STATUS: BLAS BUSH NUM: [id number] JACKELINE: 12/22/[address]: Tim Arenas MD ENTERED: 12/23/[address] [facility] [address]: SPEC TYPE: Surgical DEPT: S ENTERED BY: [id number] RECV BY: [id number] ORDERED: HE/2, Gross/Micro L4 ORDERED: HE/2, Gross/Micro L4 Pathological Diagnosis Random colon biopsies: -Unremarkable benign colonic mucosa without microscopic colitis, or any other specific type colitis identified Clinical Information Colon polyps Gross Description The specimen was received in formalin with the patient's name and random colon biopsies and consists of 3 black portions of soft tissue ranging in size from 0.2 to 0.4 cm in greatest dimension. The specimen is entirely submitted in cassette A1. Microscopic Description Microscopic examinations are performed supporting the above interpretation ---- Specimen: [id number] Received: 12/23/23 Status: RICKEYPrem Bush Num: [id number] Spec Type: Surgical Subm Dr: Tim Arenas MD Tissues: A Colon Biopsy (RANDOM COLON BXS R/O MICROSC) Procedures: SONU Gross/Micro L4 ---- Patient: Alexandru Thomas [id number] (Continued) ---- Specimen: [id number] Received: 12/23/23 (Continued) Signed (signature on file) Pablo Salgado MD 12/28/23 2135 ---- Specimen: [id number] Received: 12/23/23 Status: BLAS Bush Num: [id number] Spec Type: Surgical Subm Dr: Tim Arenas MD Tissues: A Colon Biopsy (RANDOM COLON BXS R/O MICROSC) Procedures: Carlota ASCENCIO/Micro L4 ---- Patient: Alexandru Thomas [id number] (Continued) ---- Specimen: [id number] Received: 12/23/23 (Continued) CPT Codes 95661 ---- ---- Specimen: [id number] Received: 12/23/23 Status: BLAS Bush Num: [id number] Spec Type: Surgical Subm Dr: Tim Arenas MD Tissues: A Colon Biopsy (RANDOM COLON BXS R/O MICROSC) Procedures: HE/2, Gross/Micro L4 ---- Patient: Alexandru Thomas [id number] (Continued) ---- Signed (signature on file) Chin-Aba Salgado MD 12/28/232134 Normal [facility] C reactive protein [Mass/vol ume] in Serum or PlasmaOrdered By: Tim Arenas on 2023 CRP [Mass/Vol] < 0.5 mg/dL 0.0-0.5 [facility] C-Reactive Proteinon 024 CRP [Mass/Vol] mg/L Normal 0.0-0.5 [facility] Comment on above: Performed By: #### E SR, CRP, TSH3 #### [address] #### CELIAC, HIV SCREEN #### [facility] , Calprotectin [Mass/mass] in StoolOrdered By: Imelicia Arenas on 2023 Calprotectin (Stl) [Mass/Mass] 44 ug/g 0-120 [facility] Comment on above: Concentration Interp retation Follow-Up< 5 - 50 ug/g Normal None>50 -120 ug/g Borderline Re-evaluate in 4-6 weeks >120 ug/g Abnormal Repeat as clinically indicatedPerformed at: [facility] [address] [id number] Director: Pamela Callaway MD, Phone: [phone] Calprotectin, Fecalon 2023 Calprotectin, Fecal 44 Normal 0-120 [facility] Comment on above: Result Comment: Conc entration Interpretation Follow-Up < 5 - 50 ug/g Normal None >50 -120 ug/g Borderline Re-evaluate in 4-6 weeks >120 ug/g Abnormal Repeat as clinically indicated Performed at: [facility] [address] [id number] Surveyor Helper Rod: Pamela Callaway MD, Phone: [phone] PERFORMED BY: [place] [address] PATHOLOGIST GRINDER OPERATOR AUTOMATIC CHRIS IBARRA M.D. Performed By: #### C ALPROTECT #### [facility] , Celiacon 2023 Deamidated Gliadin Abs, IgA 6 Normal 0-19 [facility] Comment on above: Result Comment: Nega tive 0 - 19 Weak Positive 20 - 30 Moderate to Strong Positive >30 Performed By: #### E SR, CRP, TSH3 #### [facility] [address] [place] [address] #### CELIAC, HIV SCREEN #### [facility] , Deamidated Gliadin Abs, IgG 4 Normal 0-19 [facility] Comment on above: Result Comment: Nega tive 0 - 19 Weak Positive 20 - 30 Moderate to Strong Positive >30 Performed By: #### E SR, CRP, TSH3 #### [facility] [address] [place] [address] [place] #### CELIAC, HIV SCREEN #### [facility] , Endomysial Antibody IgA Negative Normal Negative [facility] Comment on above: Performed By: #### E SR, CRP, TSH3 #### [place] [address] [place] #### CELIAC, HIV SCREEN #### [facility] , Immunoglobulin A, Qn, Serum 290 mg/dL Normal 90-386 [facility] Comment on above: Result Comment: Perf ormed at: - [facility] [address] [id number] Surveyor Helper Rod: Mirza Seaman PhD, Phone: [phone] Performed By: #### E SR, CRP, TSH3 #### [address] #### CELIAC, HIV SCREEN #### [facility] , T-Transglutaminase (tTG) IgA 2 Normal 0-3 [facility] Comment on above: Result Comment: Nega tive 0 - 3 Weak Positive 4 - 10 Positive >10 Tissue Transglutaminase (tTG) has been identified as the endomysial antigen. Studies have demonstr- ated that endomysial IgA antibodies have over 99% specificity for gluten sensitive enteropathy. Performed By: #### E SR, CRP, TSH3 #### [address] #### CELIAC, HIV SCREEN #### [facility] , T-Transglutaminase (tTG) IgG 4 Normal 0-5 [facility] Comment on above: Result Comment: Nega tive 0 - 5 Weak Positive 6 - 9 Positive >9 Performed By: #### E SR, CRP, TSH3 #### [address] #### CELIAC, HIV SCREEN #### [facility] , Erythrocyte Sedimentation Ra pramod 2023 ESR (Bld) [Velocity] 6 mm/h Normal 0-14 [facility] Comment on above: Result Comment: PERF ORMED BY: [place] [address] PATHOLOGIST GRINDER OPERATOR AUTOMATIC CHRIS IBARRA M.D. Performed By: #### E SR, CRP, TSH3 #### [address] #### CELIAC, HIV SCREEN #### [facility] , Erythrocyte sedimentation ra te by Photometric methodOrdered By: Tim Arenas on 2023 ESR Photometric method (Bld) [Velocity] 6 mm/hr 0-14 [facility] HIV 1/O/2 Antigen/Antibodyon 2023 HIV Screen 4th Generation Non-Reactive Normal Non Reactive [facility] Comment on above: Result Comment: HIV- 1/HIV-2 antibodies and HIV-1 p24 antigen were NOT detected. There is no laboratory evidence of HIV infection. HIV Negative Performed at: [facility] [address] [place], [place] [id number] Surveyor Helper Rod: Mirza eSaman PhD, Phone: [phone] PERFORMED BY: [place] [address] PATHOLOGIST GRINDER OPERATOR AUTOMATIC CHRIS IBARRA M.D. Performed By: #### E SR, CRP, TSH3 #### [place] [address] [place] #### CELIAC, HIV SCREEN #### [facility] , HIV 1 and HIV-2 antibody ass ay with HIV-1 p24 antigen detectionOrdered By: Tim Arenas on 2023 HIV 1+2 Ab+HIV1 p24 Ag IA Ql Non-Reactive Non Reactive [facility] Comment on above: HIV-1/HIV-2 antibodi es and HIV-1 p24 antigen were NOTdetected. There is no laboratory evidence of HIV infection.HIV NegativePerformed at: [facility] [address] [id number] Director: Mirza Seaman PhD, Phone: [phone] IgA [Mass/volume] in Serum o r PlasmaOrdered By: Tim Arenas on 2023 IgA [Mass/Vol] 290 mg/dL 90-386 [facility] Comment on above: Performed at: [facility] [address] [id number] Director: Mirza Seaman PhD, Phone: [phone] No Panel InformationOrdered By: Imelicia Arenas on 2023 Endomysial IgA Antibody Negative Negative [facility] Serum gliadin peptide IgA an tibody assay (units/volume)Ordered By: Tim Arenas on 2023 Gliadin peptide IgA Qn (S) 6 units 0-19 [facility] Comment on above: Negative 0 - 19 Weak Positive 20 - 30 Moderate to Strong Positive >30 Serum gliadin peptide IgG an tibody assay (units/volume)Ordered By: [facility] on 2023 Gliadin peptide IgG Qn (S) 4 units 0-19 [facility] Comment on above: Negative 0 - 19 Weak Positive 20 - 30 Moderate to Strong Positive >30 Serum tissue transglutaminas e (tTG) IgA antibody assay (units/volume)Ordered By: [facility] on 2023 tTG IgA Qn (S) 2 U/mL 0-3 [facility] Comment on above: Negative 0 - 3 Weak Positive 4 - 10 Positive >10 Tissue Transglutaminase (tTG) has been identified as the endomysial antigen. Studies have demonstr- ated that endomysial IgA antibodies have over 99% specificity for gluten sensitive enteropathy. Serum tissue transglutaminas e (tTG) IgG antibody assay (units/volume)Ordered By: [facility] on 2023 tTG IgG Qn (S) 4 U/mL 0-5 [facility] Comment on above: Negative 0 - 5 Weak Positive 6 - 9 Positive >9 Thyrotropin [Units/volume] i n Serum or PlasmaOrdered By: [facility] on 2023 TSH Qn 2.74 m[IU]/L Normal 0.45-5.33 [facility] Comment on above: Result Comment: PERF ORMED BY: [place] [address] PATHOLOGIST GRINDER OPERATOR AUTOMATIC CHRIS IBARRA M.D. Performed By: #### E SR, CRP, TSH3 #### [address] #### CELIAC, HIV SCREEN #### [facility] , Vital Signs Date Time Vital Sign Value Performing Clinician Facility 02-21-2024 14:56-0500 Body height 172.7 cm Rafa Servin MD Work Phone: [facility] 02-21-2024 14:56-0500 Body mass index (BMI) [Ratio] 28.59 kg/m2 Rafa Servin MD Work Phone: [facility] 02-21-2024 14:56-0500 Body weight 85.28 kg Rafa Servin MD Work Phone: [facility] 02-21-2024 14:56-0500 Diastolic blood pressure 86 mm[Hg] Rafa Servin MD Work Phone: [facility] 02-21-2024 14:56-0500 Heart rate 59 /min Rafa Servin MD Work Phone: [facility] 02-21-2024 14:56-0500 SaO2% (BldA) [Mass fraction] 97 % Rafa Servin MD Work Phone: [facility] 02-21-2024 14:56-0500 Systolic blood pressure 118 mm[Hg] Rafa Servin MD Work Phone: [facility] 12-22-2023 12:49-0400 Diastolic blood pressure 70 mm[Hg] II Rafa Servin Work Phone: [facility] 12-22-2023 12:49-0400 Heart rate 61 /min II Rafa Servin Work Phone: [facility] 12-22-2023 12:49-0400 Respiratory rate 16 /min II Rafa Servin Work Phone: [facility] 12-22-2023 12:49-0400 SaO2% (BldA) [Mass fraction] 99 % II Rafa Servin Work Phone: [facility] 12-22-2023 12:49-0400 Systolic blood pressure 115 mm[Hg] II Rafa Servin Work Phone: [facility] 12-22-2023 10:41-0400 Body height 177.8 cm II Rafa Servin Work Phone: [facility] 12-22-2023 10:41-0400 Body weight 81.64 kg II Rafa Servin Work Phone: [facility] 11-09-2023 15:50-0400 Body height 175.26 cm II Rafa Servin Work Phone: [facility] 11-09-2023 15:50-0400 Body mass index (BMI) [Ratio] 27.7 kg/m2 II Rafa Servin Work Phone: [facility] 11-09-2023 15:50-0400 Body weight 85.27 kg II Rafa Servin Work Phone: [facility] 11-09-2023 15:50-0400 Diastolic blood pressure 65 mm[Hg] II Rafa Servin Work Phone: [facility] 11-09-2023 15:50-0400 Heart rate 63 /min II Rafa Servin Work Phone: [facility] 11-09-2023 15:50-0400 Systolic blood pressure 97 mm[Hg] II Rafa Servin Work Phone: [facility] 03-18-2023 15:30-0500 Body height 175.26 cm Jan Fletcher Other [facility] Other 03-18-2023 15:30-0500 Diastolic blood pressure 78 mm[Hg] Jan Fletcher Other [facility] Other 03-18-2023 15:30-0500 Systolic blood pressure 120 mm[Hg] Jan Fletcher Other [facility] Other 03-17-2022 15:45-0500 Body height 175.26 cm Jan Fletcher Other [facility] Other 03-17-2022 15:45-0500 Body mass index (BMI) [Ratio] 30.71 kg/m2 Jan Fletcher Other [facility] Other 03-17-2022 15:45-0500 Body weight 94.35 kg Jan Fletcher Other [facility] Other 03-17-2022 15:45-0500 Diastolic blood pressure 83 mm[Hg] Jan Mominack Other [facility] Other 03-17-2022 15:45-0500 Systolic blood pressure 122 mm[Hg] Jan Tomormack Other [facility] Other Encounters Encounter Date Encounter Type Care Provider Facility Start: 02-21-2024 End: 02-21-2024 Assay of hemosiderin, quant Rafa Servin MD Work Phone: [facility] Work Phone: Start: 02-21-2024 End: 02-21-2024 Periodic preventive med est patient 40-64yrs Rafa Servin MD Work Phone: [facility] Comment on above: Routine general medi pamela examination at health care facility (Primary Dx) Start: 02-21-2024 End: 02-21-2024 ambulatory RAFA SERVIN Not Available Start: 12-22-2023 Non-patient / Non-visit II Rafa Servin Work Phone: [facility] Work Phone: Start: 12-22-2023 End: 12-22-2023 Admission to same day surgery center II Rafa Servin Work Phone: [facility] Work Phone: Start: 12-22-2023 End: 12-22-2023 ambulatory II Rafa Servin Work Phone: [facility] Work Phone: Start: 2023 End: 2023 Patient encounter procedure II Rafa Servin Work Phone: [facility] [place] Work Phone: Start: 2023 End: 2023 ambulatory II Rafa Servin Work Phone: [facility] Work Phone: Start: 11-09-2023 End: 11-09-2023 Patient encounter procedure II Rafa Servin Work Phone: [facility] Work Phone: Start: 03-18-2023 End: 03-18-2023 ambulatory Jan Tomormack Other [facility] Other Start: 03-18-2023 Office outpatient visit 15 minutes Jan Fletcher [facility] Start: 07-09-2022 End: 07-09-2022 ambulatory Jan Chance Other [facility] Other Start: 07-09-2022 Telephone encounter Jan sahni [facility] Start: 03-17-2022 End: 03-17-2022 ambulatory Jan Chance Other [facility] Other Start: 03-17-2022 Office outpatient visit 15 minutes Jan Fletcher [facility] Start: 12-30-2021 End: 12-30-2021 ambulatory Jan Chance Other [facility] Other Start: 12-30-2021 Telephone encounter Jan sahni [facility] Start: 08-09-2018 End: 08-10-2018 Patient encounter procedure RAFA SERVIN Facility:[facility] Start: 07-21-2018 End: 07-22-2018 Patient encounter procedure RAFA SERVIN Facility:[facility] Procedures Date Procedure Procedure Detail Performing Clinician Start: 12-22-2023 End: 12-22-2023 Colonoscopy II Rafa Servin Work Phone: Plan of Treatment Date Care Activity Detail Author Start: 12-21-2033 Screening for malignant neoplasm of colon [facility] Start: 05-02-2024 End: 05-02-2024 Patient encounter procedure 05/02/2024 4:00 PM EST Office Visit [facility] [address] [place] [address] Krissy Olivarez NP [address] [place], [place] [address] Start: 12-22-2023 [facility] Start: 12-19-2023 Influenza vaccination Influenza Vaccine (#1) [facility] Start: 2023 End: 2023 [facility] Start: 1975 Screening for malignant neoplasm of colon [facility] Endomysial antibody IgA level [facility] Gliadin peptide IgA Ab [Units/volume] in Serum [facility] Gliadin peptide IgG Ab [Units/volume] in Serum [facility] HIV 1+2 Ab+HIV1 p24 Ag [Presence] in Serum or Plasma by Immunoassay [facility] IgA [Mass/volume] in Serum or Plasma [facility] Patient Education Hemorrhoids (D C) Know your Meds [facility] Work Phone: Tissue transglutamin ase IgA Ab [Units/volume] in Serum [facility] Tissue transglutamin ase IgG Ab [Units/volume] in Serum [facility] Immunizations Immunization Date Immunization Notes Care Provider [facility] 04-18-2023 influenza, seasonal, injectable Rafa Servin MD Work Phone: [facility] 04-18-2023 influenza virus vacc ine, unspecified formulation Rafa Servin MD Work Phone: [facility] 03-14-2021 influenza, injectabl e, quadrivalent, preservative free Rafa Servin MD Work Phone: [facility] 02-25-2020 influenza, injectabl e, quadrivalent, preservative free Rafa Servin MD Work Phone: [facility] 02-19-2019 influenza, injectabl e, quadrivalent, preservative free Rafa Servin MD Work Phone: [facility] 02-13-2018 influenza, injectabl e, quadrivalent, preservative free Rafa Servin MD Work Phone: [facility] 02-22-2017 influenza, injectabl e, quadrivalent, preservative free Rfaa Servin MD Work Phone: [facility] 02-23-2016 influenza, injectabl e, quadrivalent, contains preservative Rafa Servin MD Work Phone: [facility] 08-15-2015 tetanus toxoid, redu mackenzie diphtheria toxoid, and acellular pertussis vaccine, adsorbed Rafa Servin MD Work Phone: [facility] Payers Date Payer Category Payer Self-pay [id number] 2023 Private Health Insurance [facility] [id number] 2023 Private Health Insurance [id number] 1977 Unknown [id number] 1977 Unknown [id number] 1977 Unknown [id number] 1959 Private Health Insurance [id number] Unknown [employer] [id number] Unknown [id number] Unknown [id number] Social History Date Type Detail Facility Unknown if ever smoked [facility] Other Start: 09-22-2022 End: 02-20-2024 Sex Assigned At [facility] Start: 12-07-2023 End: 12-22-2023 Tobacco smoking status [facility] Ex-smoker (finding) [facility] Start: 1975 Sex Assigned At Male [facility] Start: 09-22-2022 Tobacco smoking status [facility] Never smoked tobacco [facility] Start: 09-22-2022 Tobacco use and exposure Smokeless tobacco non-user [facility] Start: 02-21-2024 Alcoholic beverage intake Ex-drinker (finding) [facility] Start: 09-22-2022 End: 02-20-2024 History of Social function [facility] How often do you nee d to have someone help you when you read instructions, pamphlets, or other written material from your doctor or pharmacy [SILS] Never [facility] Within the last year , have you been afraid of your partner or ex-partner? No [facility] Do you belong to any clubs or organizations such as sabianist groups, unions, fraternal or athletic groups, or school groups? Yes [facility] Are you now , , , , never or living with a partner? [facility] How often to you hav e a drink containing alcohol? Monthly or less [facility] How many standard dr inks containing alcohol do you have on a typical day? 1 or 2 [facility] How often do you hav e 6 or more drinks on 1 occasion? Never [facility] How hard is it for y ou to pay for the very basics like food, housing, medical care, and heating Not very hard [facility] Do you feel stress - tense, restless, nervous, or anxious, or unable to sleep at night because your mind is troubled all the time - these days [OSQ] To some extent [facility] (I/We) worried maría er (my/our) food would run out before (I/we) got money to buy more. Never true [facility] Start: 1975 Sex assigned at Not on file [facility] Medical Equipment Procedure Code Equipment Code Equipment Origin al Text Equipment Identifier Dates Capsule endoscopy, for patency of lumen evaluation Video capsule endoscopy system [id number] FDA Start: 04-03-2019 Goals Date Patient Goal Desired Activity /State History of Present illness Narrative 02-21-2024 Rafa Servin MD - 02/21/2024 3:00 PM EST Note Date & Type Note Facility 02-21-2024 History of Presen t illness Narrative Images from the original note were not included. Subjective Patient ID: Alexandru Thomas is a 48 y.o. male who presents for Annual Exam. Pt is here for his annual visit and is due for all labs Pt has no concerns Current Outpatient Medications on File Prior to Visit Medication Sig Dispense Refill alosetron (Lotronex) 1 MG tablet Take 1 mg by mouth in the morning and 1 mg before bedtime. No current facility-administered medications on file prior to visit. I have reviewed and reconciled the history and medication list with the patient today. Allergies Allergen Reactions Mesalamine Other Reaction(s): Unknown Reaction Social History Tobacco Use Smoking status: Never Smokeless tobacco: Never Substance Use Topics Alcohol use: Not Currently Family History Problem Relation Name Age of Onset Migraines Mother Hyperlipidemia Father N/a Other (htn) Father N/a Past Medical History: Diagnosis Date Allergic Arthritis Hx of colonic polyp 2009 Juvenile rheumatoid arthritis (CMS/HCC) Past Surgical History: Procedure Laterality Date COLONOSCOPY 2009 with polypectomy COLONOSCOPY 2018 COLONOSCOPY 12/22/2023 Internal Hemorrhoids Visit Vitals Smoking Status Never Review of Systems Objective Physical Exam Constitutional: General: He is not in acute distress. Appearance: He is normal weight. He is not ill-appearing. HENT: Head: Normocephalic. Cardiovascular: Rate and Rhythm: Normal rate and regular rhythm. Heart sounds: Normal heart sounds. No murmur heard. Pulmonary: Effort: Pulmonary effort is normal. Breath sounds: Normal breath sounds. Abdominal: General: Abdomen is flat. Bowel sounds are normal. There is no distension. Palpations: There is no mass. Tenderness: There is no abdominal tenderness. Hernia: A hernia is present. Musculoskeletal: General: No swelling. Right lower leg: No edema. Left lower leg: No edema. Neurological: Mental Status: He is alert. Psychiatric: Mood and Affect: Mood normal. Thought Content: Thought content normal. Judgment: Judgment normal. Assessment/Plan Diagnoses and all orders for this visit: Routine general medical examination at health care facility No follow-ups on file. documented in this encounter [facility] Procedure note 12-22-2023 Note Date & Type Note Facility 12-22-2023 Procedure note [facility] Evaluation note 11-09-2023 Note Date & Type Note Facility 11-09-2023 Evaluation note Authored November 09, 2023 4:05 pm 47 y/o man with IBS-D came t [facility] for follow up Patient reports well controlled IBS-D symptoms with Alosertron. He currently reports 1-2 normal BMs and denies abdominal pain while on treatment. if he does not take Alosetron pain and diarrhea recur. Patient has history of colonic polyps, last colonoscopy was in 2018 -Will arrange for surveillance colonoscopy. -Will check CRP, fecal calprotectin, TSH, Celiac panel. [facility] Work Phone: Evaluation note 03-18-2023 Note Date & Type Note Facility 03-18-2023 Evaluation note Encounter Date Diagnosis Assessment Notes Feb, Crohns disease of small intestine (ICD-10 - K50.00) Feb, Irritable bowel syndrome with diarrhea (ICD-10 - K58.0) Patient reports that he is doing well on alosetron 1G BID and will continue with this therapy without change RTO 1 year [employer] Other Evaluation note 03-17-2022 Note Date & Type Note Facility 03-17-2022 Evaluation note Encounter Date Diagnosis Assessment Notes Feb, Crohns disease of small intestine (ICD-10 - K50.00) Feb, Irritable bowel syndrome with diarrhea (ICD-10 - K58.0) Continue Lotronex without change Continue Imodium PRN [employer] Other Evaluation note 12-30-2021 Note Date & Type Note Facility 12-30-2021 Evaluation note Encounter Date Diagnosis Assessment Notes Dec, Irritable bowel syndrome with diarrhea (ICD-10 - K58.0) [facility] [employer] Other Evaluation note Note Date & Type Note Facility Evaluation note No Information [facility] [employer] Other Evaluation note Note Date & Type Note Facility Evaluation note Diagnosis Routine general medical examination at health care facility- Primary Routine general medical examination at a health care facility documented in this encounter [facility] History and physical note Note Date & Type Note Facility History and physical note Note Date/Time December 22, 2023 12:01pm [facility] [address] [place] [address] Gastroenterology H&P Signed Patient: Alexandru Thomas MR#: [id number] : 1975 Acct:[id number] Age/Sex: 48 / M Adm Date: 4 Loc: Room: Type: [facility] Attending Dr: Tim Arenas MD Copies to: MD Tim Brush II, MD~ Date of Service: 12/22/2023 HISTORY & PHYSICAL: Patient's history with special attention to the cardiovascular, pulmonary systems and the current problem was reviewed with the patient immediately prior to the procedure. Present medications and doses reviewed in the EMR. Allergies and pertinent laboratory tests were also reviewedat this time in the EMR. The physical examination, as below, was then performed. Indication, assessment and HPI: 48-year-old man with history of colonic polyps here for colonoscopy for evaluation of diarrhea Family history of GI malignancy? No PHYSICAL EXAMINATION General appearance: NAD Skin: No jaundice Head: NC/AT Eyes: Anicteric Neck: Supple Lungs: Normal respiratory effort, no use of accessory muscles Abdomen: nondistended Neuro: Ox3. REVIEW OF SYSTEMS Constitutional: Denies malaise, fevers Cardiovascular: Denies chest pain, palpitations Respiratory: Denies shortness of breath, wheezing Gastrointestinal: As per HPI Genitourinary: Denies dysuria, polyuria Musculoskeletal: Denies joint swelling, joint stiffness Neurological: Denies confusion, numbness, tingling Endocrine: Denies fatigue Written informed consent obtained from the patient. Risks (including but not limited to perforation, infection, bloating, bleeding, need for emergent surgeryand loss of life), benefits and alternatives explained and questions answered. The patient verbalized understanding. Based on history patient is an appropriate candidate for the procedure. Tim Arenas M.D. Documented By: Tim Arenas MD 12/22/23 1200 Signed By: <Electronically signed by Tim Arenas MD> 12/22/23 1201 [facility] Work Phone: History general Narrative - Reported Note Date & Type Note Facility History general Narrative - Reported Type Medical History IBS Medical History Rheumatoid Arthritis as a Child Surgical History Colonoscopy - Dr. Fletcher Hospitalization History Rheumatoid Arthritis as a child [employer] Other Summary Purpose Family History No Family History Records Found Relationship Condition Age at Onset Recorded Date/T sheryl father Malignant neoplasm of prostate Unknown Hypertension Unknown mother Malignant neoplasm of breast Unknown Diabetes mellitus Unknown Advance Directives No Advanced Directives Records Found Advance Directive Response Recorded Date/ Time Advance Directives No August 20, 2017 12:38pm Chief Complaint and Reason for Visit Chief Complaint 1 YR FOLLOW UP-IBS-D /CROHN'S r19.7 Reason for Visit Irritable bowel synd andrew with diarrhea Diarrhea Chief Complaint 1 YR FOLLOW UP-IBS-D /CROHN'S r19.7 hx of colon polyps hx of colon polyps Reason for Visit Irritable bowel synd andrew with diarrhea Diarrhea Additional Source Comments (unrecognized sect ion and content) No Status Records FoundNo Status Records FoundNo Status Records Found INFORMATION SOURCE (unrecogn ized section and content) DATE CREATED AUTHOR 08/13/2018 [facility] DATE CREATED AUTHOR AUTHOR'S ORGANIZ ATION 12/30/2023 [facility] DATE CREATED AUTHOR AUTHOR'S ORGANIZ ATION 02/22/2024 [facility] EPIC REASON FOR VISIT (unrecogniz ed section and content) Reason Comments Annual Exam Care Teams (unrecognized sec tion and content) Team Status: Active Member Role Status Dates Rafa Servin II MD Primary Care Provider Active Team Status: Inactive Member Role Status Dates Rafa Servin II MD Primary Care Provider Active Start: November 09, 2023 End: November 09, 2023 Tim Arenas MD Attending Provider Active Start: November 09, 2023 End: November 09, 2023 Team Status: Inactive Member Role Status Dates Rafa Servin II MD Primary Care Provider Active Start: 2023 End: 2023 Tim Arenas MD Attending Provider Active Start: 2023 End: 2023 Team Status: Inactive Member Role Status Dates Rafa Servin II MD Primary Care Provider Active Start: December 22, 2023 End: December 22, 2023 Tim Arenas MD Attending Provider Active Start: December 22, 2023 End: December 22, 2023 Team Status: Active Member Role Status Dates Rafa Servin II MD Primary Care Provider Active Start: December 22, 2023 Tim Arenas MD Attending Provider, Other Provider Active Start: December 22, 2023 Paper Twister Relationship Specialty Start Date End Date Rafa Servin MD [address] [facility] [address] [place] [address] PCP - General Internal Medicine 09/10/22 Goals (unrecognized section and content) Goals may be documented in a n alternate section FOR RECORDS PERTAINING TO PATIENTS WHO ARE OR HAVE BEEN ENROLLED IN A CHEMICAL DEPENDENCY/SUBSTANCEABUSE PROGRAM, SOME INFORMATION MAY BE OMITTED. This clinical summary was aggregated from multiple sources. Caution should be exercised in using it in the provision of clinical care. This summary normalizes information from multiple sources, and as a consequence, information in this document may materially change the coding, format and clinical context of patient data. In addition, data may be omitted in some cases. CLINICAL DECISIONS SHOULD BE BASED ON THE PRIMARY CLINICAL RECORDS. [employer] provides no warranty or guarantee of the accuracy or completeness of information in this document.
== END 2024-06-23 09:30 | disposition home or self-care (01) ==
LOC: EC 09:29
PROVIDERS: Visit Provider Orthopaedic Surgery Orthopaedic Surgery of the Spine
DX: S32.010G Wedge compression fracture of first lumbar vertebra, subsequent encounter for fracture with delayed healing (principal)
CPT/HCPCS: 72100